=== PATIENT | female | born 1985 | race Caucasian/White ===

== ENCOUNTER 2020-02-06 17:36 | Emergency (ER) | payer BC, SELFPAY ==
[2020-02-06 17:38] VITALS: BP 147/99; PULSE 82; RESP 16; TEMP 36.8; O2SAT 100; BMI 25.7
--- NOTE | 2020-02-06 17:52 | US_ITS ---
STUDY: FIRST TRIMESTER OBSTETRICAL ULTRASOUND REASON FOR EXAM: Female, 34 years old LIGHT BROWN BLEEDING LMP: 12/30/2019 TECHNIQUE: Transvaginal real-time examined with grayscale image documentation. TECHNICAL QUALITY: Adequate. PRIOR ULTRASOUND: None. FINDINGS: There is visualization of a single gestational sac in a normal intrauterine position. The mean sac diameter (MSD) measures 0.8 cm, indicating an estimated gestational age (EGA) of 5 weeks, 4 days. The gestational sac shape is within normal limits. There is a visualized yolk sac. The yolk sac measures 1.7 mm. 20% is not visualized secondary to early gestational age. There is no demonstrated embryo ( pole). The estimated gestation age (EGA) by LMP is 5 weeks, 3 days. The estimated date of delivery (YARIEL) by LMP is 10/05/2020. The estimated gestation age (EGA) by US is 5 weeks, 4 days. The estimated date of delivery (YARIEL) by US is 10/04/2020. The uterus measures 7.6 x 6.4 x 4.1 cm. There is a 1.9 x 1.7 x 1.5 fibroid of the anterior myometrium. The cervix is closed. The right ovary measures 4.6 x 3.2 x 2.4 cm. 2.0 x 2.6 x 1.9 cm corpus luteum There is no visualized right adnexal mass or complex lesion. Normal DOPPLER The left ovary measures 3.0 x 2.2 x 0.9 cm. There is no left ovarian cyst. There is no visualized left adnexal mass or complex lesion. Normal DOPPLER There is minimal fluid in the cul de sac. US/Transvaginal w/Preg US IMPRESSION: Single intrauterine gestational sac of 5 weeks and 4 days. Yolk sac is visualized. pole is not visualized. 2.0 x 2.6 x 1.9 cm corpus luteum of the right ovary. Normal left ovary. No additional adnexal masses or free fluid. Electronically Signed: Ladonna Gebrer MD at 19:22 EST , Service support ,
--- NOTE | 2020-02-06 18:18 | ED.DCSUM_ITS ---
- ER Visit Summary Date of Service: 02/06/20 Chief Complaint: Vaginal bleeding History of Present Illness: The patient is a 34 F who lives in [place]. Her OB is Dr. Mak. She is a G1, P0 approximately 5 weeks . Her last menstrual period was December 29. She reports that her blood type is O-. She is supposed to go back to [place] in 3 days. Patient reports that she has spotting that began yesterday. She states that it is light brown. She complains of suprapubic cramping is 1 out of 10 at worst and she is pain-free currently. She denies any dysuria or frequency. Physical Examination: Vitals: Stable. Afebrile. General: Well-nourished and well-developed. Head: Normocephalic atraumatic. Neck: Supple, no lymphadenopathy. No JVD. Nontender. Cardiovascular: Regular rate and rhythm. No murmurs. Respiratory: No respiratory distress. Clear to auscultation bilaterally. Abdominal: Soft, nontender, nondistended, normal bowel sounds. No guarding, rebound, or peritoneal signs. Back: Nontender. Extremities: Nontender, no edema. Skin: Normal color, no rash. Neurologic: Alert and oriented ?3. Cranial nerves II through XII are intact. Normal strength and sensation. Psych: Normal affect. Test Results: Urinalysis is negative. No bacteriuria. Clinical Impression(s) from Imaging Studies Obstetrics Ultrasound 02/06/20 17:52 IMPRESSION: Single intrauterine gestational sac of 5 weeks and 4 days. Yolk sac is visualized. pole is not visualized. 2.0 x 2.6 x 1.9 cm corpus luteum of the right ovary. Normal left ovary. No additional adnexal masses or free fluid. Electronically Signed: Ladonna Gerber MD at 19:22 EST , Service support , Emergency Department Course and Treatment: Patient refused pain or nausea medications. She is resting comfortably. She was given RhoGam IM. Treatment Plan: [] Disposition: [] Impression: 1. Intrauterine . 2. Vaginal bleeding. This note was generated with [employer] at [employer] software. It may contain incorrect words, spelling, and punctuation that were not noted in review of the chart prior to signing ED Disposition - Plan for ED Patient: Instructions: ED Possible Miscarriage ... Referrals: Doctor,Your [STAFF PHYSICIAN] - As soon as possible
[2020-02-06 18:30] LABS: Bacteria 0 SEEN /hpf (None Seen); Mucous, Urine 0 SEEN /hpf (<or=2+); Red Blood Cells-Urine 0 SEEN /hpf (0-5); Squamous Epithelial Cells - UA 0 SEEN /hpf (5-10); White Blood Cells 0 SEEN /hpf (0-5)
[2020-02-06 18:37] LABS: Color, Urine Yellow (Yellow); Glucose, Dipstick Normal (Normal); Ketone-Dipstick Negative (Negative); Leukocyte Esterase-Dipstick Negative /ul (Negative); Nitrite-Dipstick Negative (Negative); Occult Blood-Urine Negative /ul (Negative); Protein-Dipstick Negative (Negative); Specific Gravity, Urine 1.015 (1.002-1.030); Urine Bilirubin Dipstick Negative (Negative); Urine Clarity Clear (Clear); Urine Urobilinogen Normal (Normal); Urine pH 6.5 (5.0 - 8.0)
[2020-02-06 19:26] LABS: hCG Titer Quant., Serum 8097 mIU/mL (1-3)
[2020-02-06 20:39] VITALS: BP 130/76
== END 2020-02-06 20:39 | disposition home or self-care (01) ==
PROVIDERS: Emergency Provider Emergency Medicine
DX: O20.9 Hemorrhage in early pregnancy, unspecified (principal); Z3A.01 Less than 8 weeks gestation of pregnancy
CPT/HCPCS: 76817; 81001; 84702; 86850; 86900; 86901; 90384; 96372; 99283; J2790